=== PATIENT | female | born 1990 | race Caucasian/White ===

== ENCOUNTER 2021-02-09 20:13 | Emergency (ER) | payer MEDICAID ==
[2021-02-09] MEDS ORDERED: Sodium Chloride 0.9% 500 ML IV ONE (20:34)
[2021-02-09] MEDS ORDERED: Sodium Chloride 0.9% 10 ML Syringe FLUSH PRN (20:34)
[2021-02-09] MEDS ORDERED: Sodium Chloride 0.9% 2.5 ML Syringe FLUSH PRN (20:34)
[2021-02-09] MEDS ORDERED: LORazepam 2 MG/ML SDV IVPUSH STA (20:36)
--- NOTE | 2021-02-09 20:42 | EDM.PDOC ---
ED HPI GENERAL MEDICAL PROBLEM - General Chief Complaint: Cardiovascular Problem Stated Complaint: HIGH BLOOD PRESSURE Time Seen by Provider: 02/09/21 20:21 - History of Present Illness INITIAL COMMENTS - FREE TEXT/NARRATIVE: Patient presents to the emergency department complaining of dizziness and chest pain. Patient with a history of of to time cardiac ablation for SVT, ASD and epidural and December from head injury. She states on Tuesday she got the Covid vaccine and was sleepy since then. Then over the last day she developed sharp chest pain and lightheadedness. Patient states she had a history of anxiety but is only last use of Xanax several months ago. Patient denies history of blood clot. No unilateral leg swelling. No recent travel or cancer or surgery. Patient uses Depo for control and smokes cigarettes and had epidural in December as potential PE risk factors. Patient denies any fevers cough or productive sputum. There is no excessive vaginal bleeding or red or black stools. She is not complaining of headache slurred speech double vision arm/leg numbness/weakness. She states her lightheadedness is worse when she sits up. The chest pain is sharp and not pleuritic. It is not worse when she sits up or lays down or ambulates. Moderate - Related Data Allergies Allergy/AdvReac Type Severity Reaction Status Date / Time morphine Allergy Hives Verified 02/09/21 20:28 tramadol Allergy Hives Verified 02/09/21 20:28 Home Meds: Home Meds Sertraline [Zoloft] 50 mg PO DAILY 02/09/21 [History] Zolpidem [Ambien] 10 mg PO BEDTIME 02/09/21 [History] Past Medical History Cardiovascular History: Reports: Arrhythmia, Other (See Below) Other Cardiovascular History: Atrial Septal Defect Respiratory History: Reports: None Neurological History: Reports: Brain Injury - Past Surgical History Cardiovascular Surgical History: Reports: None Social & Family History - Tobacco Use Tobacco Use Status *Q: Current Every Day Tobacco User Years of Tobacco use: 3 Packs/Tins Daily: 0.5 - Caffeine Use Caffeine Use: Reports: None - Alcohol Use Days Per Week of Alcohol Use: 1 Number of Drinks Per Day: 1 Total Drinks Per Week: 1 - Recreational Drug Use Recreational Drug Use: No ED ROS GENERAL - Review of Systems Review Of Systems: Comprehensive ROS is negative, except as noted in HPI. ED EXAM, GENERAL - Physical Exam Exam: See Below Free Text/Narrative:: CONSTITUTIONAL: well appearing in no acute distress SKIN: Warm, dry, and intact without rash HENT: Normocephalic, atraumatic, PULMONARY: clear to ausculation bilaterally. No rales, rhonchi, wheezing CARDIOVASCULAR: Tachycardia no murmurs or rubs or gallops GASTROINTESTINAL: soft, nondistended, nontender NEUROLOGIC: normal speech, II-XII intact. light touch/5/5 power equal and symmetric in upper and lower extremities without deficit MUSCULOSKELETAL: no gross deformities, atraumatic PSYCHIATRIC: normal mood and affect #1 Interpretation Time: 20:41 EKG Interpretation Comments: 8:18 PM. 126, sinus tachycardia, nonspecific ST/T findings Course - Vital Signs Text/Narrative:: Differential diagnosis: PE, pneumothorax, pneumonia, ACS, pericarditis, dissection, intracranial hemorrhage, vaccination side effect, other Presents as outlined above. Patient's tachycardia resolved in the emergency department with IV fluids and Ativan. She was to get Toradol after CT scan showed no reason for anticoagulation and bleeding but declines at this time. She would like to go home. Otherwise EKG nonspecific with negative cardiac enzymes in this patient with very low risk for ACS. CT scan likely is negative for any acute pathology. Patient advised trial of ibuprofen at home with return precautions and PCP follow-up Last Recorded V/S: Last Vital Signs Temp 37.1 C 02/09/21 20:20 Pulse 92 02/09/21 22:54 Resp 17 02/09/21 22:54 BP 115/72 02/09/21 22:54 Pulse Ox 97 02/09/21 22:54 - Orders/Labs/Meds Orders: Active Orders 24 hr Category Date Time Status Cardiac Monitoring [RC] . DIRECTED Care 02/09/21 20:35 Active Pulse Oximetry [RC] ASDIRECTED Care 02/09/21 20:35 Active Sodium Chloride 0.9% [Saline Flush] Med 02/09/21 20:34 Active 10 ml FLUSH ASDIRECTED PRN Sodium Chloride 0.9% [Saline Flush] Med 02/09/21 20:34 Active 2.5 ml FLUSH ASDIRECTED PRN Saline Lock Insert [OM.PC] Stat Oth 02/09/21 20:35 Ordered Medication Orders Sodium Chloride (Sodium Chloride 0.9% 10 Ml Syringe) 10 ml FLUSH ASDIRECTED PRN PRN Reason: Keep Vein Open Last Admin: 02/09/21 20:45 Dose: 10 ml Documented by: FAUZIA Sodium Chloride (Sodium Chloride 0.9% 2.5 Ml Syringe) 2.5 ml FLUSH ASDIRECTED PRN PRN Reason: Keep Vein Open Last Admin: 02/09/21 20:44 Dose: 2.5 ml Documented by: FAUZIA Labs: Laboratory Tests 02/09/21 02/09/21 02/09/21 Range/Units 20:25 20:25 20:25 WBC 10.34 (4.0-11.0) K/uL RBC 5.07 (4.30-5.90) M/uL Hgb 16.6 H (12.0-16.0) g/dL Hct 46.1 H (36.0-46.0) % MCV 90.9 (80.0-98.0) fL MCH 32.7 H (27.0-32.0) pg MCHC 36.0 (31.0-37.0) g/dL RDW Std Deviation 46.5 (28.0-62.0) fl RDW Coeff of Yuni 14 (11.0-15.0) % Plt Count 382 (150-400) K/uL MPV 9.70 (7.40-12.00) fL Neut % (Auto) 64.1 (48.0-80.0) % Lymph % (Auto) 26.9 (16.0-40.0) % [place] % (Auto) 7.4 (0.0-15.0) % Eos % (Auto) 1.3 (0.0-7.0) % Baso % (Auto) 0.3 (0.0-1.5) % Neut # (Auto) 6.6 H (1.4-5.7) K/uL Lymph # (Auto) 2.8 H (0.6-2.4) K/uL [place] # (Auto) 0.8 (0.0-0.8) K/uL Eos # (Auto) 0.1 (0.0-0.7) K/uL Baso # (Auto) 0.0 (0.0-0.1) K/uL Nucleated RBC % 0.0 /100WBC Nucleated RBCs # 0 K/uL INR 1.00 Sodium 140 (136-145) mmol/L Potassium 3.5 (3.5-5.1) mmol/L Chloride 101 (98-107) mmol/L Carbon Dioxide 23.0 (21.0-32.0) mmol/L BUN 10 (7.0-18.0) mg/dL Creatinine 0.8 (0.6-1.0) mg/dL Est Cr Clr Drug Dosing 99.99 mL/min Estimated GFR (MDRD) > 60.0 ml/min Glucose 94 (74-106) mg/dL Calcium 9.4 (8.5-10.1) mg/dL Total Bilirubin 0.6 (0.2-1.0) mg/dL AST 19 (15-37) IU/L ALT 25 (14-63) IU/L Alkaline Phosphatase 56 (46-116) U/L Troponin I < 0.050 (0.000-0.056) ng/mL Total Protein 8.2 (6.4-8.2) g/dL Albumin 4.4 (3.4-5.0) g/dL Globulin 3.8 (2.6-4.0) g/dL Albumin/Globulin Ratio 1.2 (0.9-1.6) TSH, Ultra Sensitive 1.08 (0.36-3.74) uIU/mL Urine Color Urine Appearance Urine pH (5.0-8.0) Ur Specific [place] (1.001-1.035) Urine Protein (NEGATIVE) mg/dL Urine Glucose (UA) (NEGATIVE) mg/dL Urine Ketones (NEGATIVE) mg/dL Urine Occult Blood (NEGATIVE) Urine Nitrite (NEGATIVE) Urine Bilirubin (NEGATIVE) Urine Urobilinogen (<2.0) EU/dL Ur Leukocyte Esterase (NEGATIVE) Urine RBC (0-2/HPF) Urine WBC (0-5/HPF) Ur Epithelial Cells (NONE-FEW) Urine Bacteria (NEGATIVE) Urine HCG, Qual (NEGATIVE) 02/09/21 02/09/21 Range/Units 21:55 21:55 WBC (4.0-11.0) K/uL RBC (4.30-5.90) M/uL Hgb (12.0-16.0) g/dL Hct (36.0-46.0) % MCV (80.0-98.0) fL MCH (27.0-32.0) pg MCHC (31.0-37.0) g/dL RDW Std Deviation (28.0-62.0) fl RDW Coeff of Yuni (11.0-15.0) % Plt Count (150-400) K/uL MPV (7.40-12.00) fL Neut % (Auto) (48.0-80.0) % Lymph % (Auto) (16.0-40.0) % [place] % (Auto) (0.0-15.0) % Eos % (Auto) (0.0-7.0) % Baso % (Auto) (0.0-1.5) % Neut # (Auto) (1.4-5.7) K/uL Lymph # (Auto) (0.6-2.4) K/uL [place] # (Auto) (0.0-0.8) K/uL Eos # (Auto) (0.0-0.7) K/uL Baso # (Auto) (0.0-0.1) K/uL Nucleated RBC % /100WBC Nucleated RBCs # K/uL INR Sodium (136-145) mmol/L Potassium (3.5-5.1) mmol/L Chloride (98-107) mmol/L Carbon Dioxide (21.0-32.0) mmol/L BUN (7.0-18.0) mg/dL Creatinine (0.6-1.0) mg/dL Est Cr Clr Drug Dosing mL/min Estimated GFR (MDRD) ml/min Glucose (74-106) mg/dL Calcium (8.5-10.1) mg/dL Total Bilirubin (0.2-1.0) mg/dL AST (15-37) IU/L ALT (14-63) IU/L Alkaline Phosphatase (46-116) U/L Troponin I (0.000-0.056) ng/mL Total Protein (6.4-8.2) g/dL Albumin (3.4-5.0) g/dL Globulin (2.6-4.0) g/dL Albumin/Globulin Ratio (0.9-1.6) TSH, Ultra Sensitive (0.36-3.74) uIU/mL Urine Color YELLOW Urine Appearance CLEAR Urine pH 5.5 (5.0-8.0) Ur Specific [place] 1.015 (1.001-1.035) Urine Protein NEGATIVE (NEGATIVE) mg/dL Urine Glucose (UA) NEGATIVE (NEGATIVE) mg/dL Urine Ketones 15 H (NEGATIVE) mg/dL Urine Occult Blood SMALL H (NEGATIVE) Urine Nitrite NEGATIVE (NEGATIVE) Urine Bilirubin NEGATIVE (NEGATIVE) Urine Urobilinogen 0.2 (<2.0) EU/dL Ur Leukocyte Esterase NEGATIVE (NEGATIVE) Urine RBC 1-3 (0-2/HPF) Urine WBC 0-2 (0-5/HPF) Ur Epithelial Cells RARE (NONE-FEW) Urine Bacteria RARE (NEGATIVE) Urine HCG, Qual NEGATIVE (NEGATIVE) Meds: Medications Generic Name Dose Route Start Last Admin Trade Name Jazmin PRN Reason Stop Dose Admin Sodium Chloride 10 ml 02/09/21 20:34 02/09/21 20:45 Sodium Chloride 0.9% 10 Ml Syringe FLUSH 10 ml ASDIRECTED PRN Administration Keep Vein Open Sodium Chloride 2.5 ml 02/09/21 20:34 02/09/21 20:44 Sodium Chloride 0.9% 2.5 Ml Syringe FLUSH 2.5 ml ASDIRECTED PRN Administration Keep Vein Open Discontinued Medications Generic Name Dose Route Start Last Admin Trade Name Jazmin PRN Reason Stop Dose Admin Sodium Chloride 500 mls @ 999 mls/hr 02/09/21 20:34 02/09/21 20:44 Normal Saline IV 02/09/21 21:04 999 mls/hr .BOLUS ONE Administration Iopamidol 75 ml 02/09/21 22:25 02/09/21 22:31 Iopamidol 755 Mg/Ml 500 Ml Multipack Bottle IVPUSH 02/09/21 22:26 75 ml ONETIME ONE Administration Lorazepam 1 mg 02/09/21 20:36 02/09/21 20:44 Lorazepam 2 Mg/Ml Sdv IVPUSH 02/09/21 20:37 1 mg NOW STA Administration Departure - Departure Time of Disposition: 23:17 Disposition: Home, Self-Care 01 Condition: Good Clinical Impression: Chest pain Instructions: Nonspecific Chest Pain, Adult, [id number] Forms: ED Department Discharge Additional Instructions: Ibuprofen [id number] for pain. Return for any increased pain, shortness of breath, lightheadedness that is worsened, any change or worsening condition. Follow-up with primary care doctor this week for reevaluation. The following information is given to patients seen in the emergency department who are being discharged to home. This information is to outline your options for follow-up care. We provide all patients seen in our emergency department with a follow-up referral. The need for follow-up, as well as the timing and circumstances, are variable depending upon the specifics of your emergency department visit. If you don't have a primary care physician on staff, we will provide you with a referral. We always advise you to contact your personal physician following an emergency department visit to inform them of the circumstance of the visit and for follow-up with them and/or the need for any referrals to a consulting specialist. The emergency department will also refer you to a specialist when appropriate. This referral assures that you have the opportunity for follow-up care with a specialist. All of these measure are taken in an effort to provide you with optimal care, which includes your follow-up. Primary care clinics in the area: [facility] [address] [place] [address] [id number] Under all circumstances we always encourage you to contact your private physician who remains a resource for coordinating your care. When calling for follow-up care, please make the office aware that this follow-up is from your recent emergency room visit. If for any reason you are refused follow-up, please contact the [facility] Emergency Department at and asked to speak to the emergency department charge nurse. Sepsis Event Note (ED) - Evaluation Sepsis Screening Result: No Definite Risk - Focused Exam Vital Signs: Vital Signs Temp Pulse Resp BP Pulse Ox 02/09/21 22:54 92 17 115/72 97 02/09/21 20:20 37.1 C 125 H 18 151/100 H 97 - My Orders Last 24 Hours: My Active Orders 02/09/21 20:34 Sodium Chloride 0.9% [Saline Flush] 10 ml FLUSH ASDIRECTED PRN Sodium Chloride 0.9% [Saline Flush] 2.5 ml FLUSH ASDIRECTED PRN 02/09/21 20:35 Cardiac Monitoring [RC] . DIRECTED Pulse Oximetry [RC] ASDIRECTED Saline Lock Insert [OM.PC] Stat - Assessment/Plan Last 24 Hours: My Active Orders 02/09/21 20:34 Sodium Chloride 0.9% [Saline Flush] 10 ml FLUSH ASDIRECTED PRN Sodium Chloride 0.9% [Saline Flush] 2.5 ml FLUSH ASDIRECTED PRN 02/09/21 20:35 Cardiac Monitoring [RC] . DIRECTED Pulse Oximetry [RC] ASDIRECTED Saline Lock Insert [OM.PC] Stat
[2021-02-09 21:00] LABS: BLOOD UREA NITROGEN,BUN 10 mg/dL (7.0-18.0); CHLORIDE,CL 101 mmol/L (98-107); GLUCOSE RANDOM 94 mg/dL (74-106); POTASSIUM,K 3.5 mmol/L (3.5-5.1); SODIUM,NA 140 mmol/L (136-145)
[2021-02-09] MEDS ORDERED: Iopamidol 755 MG/ML 500 ML Multipack Bottle IVPUSH ONE (22:25)
--- NOTE | 2021-02-09 22:59 | CT ---
INDICATION: Hypertension, epidural follow-up TECHNIQUE: CT head without contrast. COMPARISON: Head CT 01/18/2021 FINDINGS: CSF spaces: Within normal limits for age. Brain parenchyma: The antonio-white differentiation is normal. No sign of mass, hemorrhage, or midline shift. Skull base and calvarium: The visualized paranasal sinuses and mastoid air cells demonstrate no acute or significant findings. The visualized orbits are grossly unremarkable. No skull fractures. IMPRESSION: Unremarkable noncontrast head CT. Please note that all CT scans at this facility use dose modulation, iterative reconstruction, and/or weight-based dosing when appropriate to reduce radiation dose to as low as reasonably achievable. Dictated by Kip Harp MD @ 02/09/2021 10:57:50 PM (Electronically Signed)
--- NOTE | 2021-02-09 23:07 | CT ---
INDICATION: Chest pain TECHNIQUE: CT chest PE was acquired with 75 cc Isovue 370 intravenous contrast. COMPARISON: None. FINDINGS: Heart and vasculature: Contrast opacification of the pulmonary arterial tree is adequate. No sign of pulmonary embolism. Heart size is normal. Thoracic aorta and pulmonary artery are normal in caliber. Lungs and pleural: No suspicious nodules or infiltrates. No pleural effusions, pleural thickening, or pneumothorax. Lymph nodes/mediastinum: No mediastinal, hilar, or axillary adenopathy. Chest wall: Subcentimeter axillary lymph nodes. Upper abdomen: Status post cholecystectomy. Bones: Unremarkable for age. IMPRESSION: Unremarkable chest CTA. No evidence of pulmonary embolus. Please note that all CT scans at this facility use dose modulation, iterative reconstruction, and/or weight-based dosing when appropriate to reduce radiation dose to as low as reasonably achievable. Dictated by Kip Harp MD @ 02/09/2021 11:06:13 PM (Electronically Signed)
== END 2021-02-09 23:29 | disposition home or self-care (01) ==
LOC: MW.ED 20:13
DX: R07.9 Chest pain, unspecified (principal); R00.0 Tachycardia, unspecified; Z72.0 Tobacco use; Z88.5 Allergy status to narcotic agent
CPT/HCPCS: 36415; 70450; 71275; 80053; 81001; 81025; 84443; 84484; 85025; 85610; 93005; 96374; 99285; J2060; J7030; Q9967

== ENCOUNTER 2021-03-14 17:58 | Emergency (ER) | payer MEDICAID ==
[2021-03-14] MEDS ORDERED: Dexamethasone 10 MG/ML SDV ONE (18:01)
[2021-03-14] MEDS ORDERED: Famotidine 20 MG/2 ML SDV ONE (18:02)
[2021-03-14] MEDS ORDERED: Famotidine 20 MG/2 ML SDV IVPUSH ONE (18:05)
[2021-03-14] MEDS ORDERED: Dexamethasone 10 MG/ML SDV IVPUSH ONE (18:05)
--- NOTE | 2021-03-14 18:06 | EDM.PDOC ---
<Socrates Lopez - Last Filed: 03/14/21 18:03> ED HPI GENERAL MEDICAL PROBLEM - General Stated Complaint: EMS ARRIVAL ALLERGIC REACTION Time Seen by Provider: 03/14/21 18:50 - History of Present Illness INITIAL COMMENTS - FREE TEXT/NARRATIVE: History of present illness: [] About 5:15 PM the patient drank a Gatorade. Subsequently she realized it had something she is allergic to. 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 She thinks the ingredients include strawberries. She was wheezing have trouble breathing tried to drive to [place] about 15 miles weight in the hospital she stopped and called 911 and they gave her adrenaline 0.3 mg on site and 0.2 in route despite the fact that she improved somewhat transiently with epinephrine and an albuterol treatment. She also received 50 mg of IV diphenhydramine en route the patient then began to wheeze again. She never lost her voice this time and when she had the Clint airway before she had trouble speaking. She did have such shortness of breath that she can only speak 3 words at a time when EMS first found her. She is markedly improved now. Review of systems: As per history of present illness and below otherwise all systems reviewed and negative. Past medical history: As per history of present illness and as reviewed below otherwise noncontributory. Surgical history: As per history of present illness and as reviewed below otherwise noncontributory. Social history: No reported history of drug or alcohol abuse. Family history: As per history of present illness and as reviewed below otherwise noncontributory. Physical exam: Constitutional - well developed, well-nourished and in no acute distress HEENT - normocephalic, no evidence of trauma - external nose and mouth normal - no mass in neck and no JVD - mucosae moist EYES - full EOM, PERRL, no icterus - no evidence of inflammation, injection, or drainage Respiratory - no respiratory distress, equal bilateral expansion, lungs scattered light wheezes. Cardiovascular - Regular Rhythm with S1 and S2 appreciated and no murmur, gallop or rub. GI - abdomen soft without distension or organomegaly - normal bowel sounds - no guard or rebound Musculoskeletal no gross deformity of long bones or joints - no tenderness, swelling or edema Neurologic - Alert and oriented times four - CN II-XII grossly intact - motor sensory and coordination symmetrically normal Psychiatric - appropriate mood and affect with normal thought content Hematologic - No petechiae or purpura - mucosa appropriate color and sclera not pale - normal nail bed color and refill Integument - no rash or evidence of trauma - normal turgor Diagnostics: [] Therapeutics: [] Impression: [] Plan: [] Definitive disposition and diagnosis as appropriate pending reevaluation and review of above. - Related Data Allergies Allergy/AdvReac Type Severity Reaction Status Date / Time morphine Allergy Hives Verified 02/09/21 20:28 tramadol Allergy Hives Verified 02/09/21 20:28 Home Meds: Home Meds Sertraline [Zoloft] 50 mg PO DAILY 02/09/21 [History] Zolpidem [Ambien] 10 mg PO BEDTIME 02/09/21 [History] EPINEPHrine [Epipen] 0.3 mg IM ONETIME PRN 1 Days #1 ml 03/14/21 [Rx] Past Medical History Cardiovascular History: Reports: Arrhythmia, Other (See Below) Other Cardiovascular History: Atrial Septal Defect Respiratory History: Reports: None Neurological History: Reports: Brain Injury - Past Surgical History Cardiovascular Surgical History: Reports: None Social & Family History - Caffeine Use Caffeine Use: Reports: None ED ROS PEDIATRIC - Review of Systems Review Of Systems: Comprehensive ROS is negative, except as noted in HPI. ED EXAM, GENERAL (PEDS) - Physical Exam Exam: See Below Text/Narrative:: My physical exam is in the HPI Departure - Departure Disposition: Home, Self-Care 01 Clinical Impression: Anaphylaxis - Discharge Information Prescriptions: EPINEPHrine [Epipen] 0.3 mg IM ONETIME PRN 1 Days #1 ml PRN Reason: anaphylaxis Instructions: Anaphylactic Reaction, Adult Additional Instructions: Please be sure to fill the EpiPen prescription on your way home and please be sure to have it with you at all times. You were at risk for a rebound anaphylactic reaction for the next 3 days so it is very important that you have the EpiPen with you that entire time. <Leonel Self - Last Filed: 03/14/21 19:55> ED ROS PEDIATRIC - Review of Systems Review Of Systems: See Below ED EXAM, GENERAL (PEDS) - Physical Exam Exam: See Below Course - Vital Signs Last Recorded V/S: Last Vital Signs Temp 97 F 03/14/21 17:59 Pulse 85 03/14/21 18:26 Resp 16 03/14/21 18:26 BP 105/60 03/14/21 18:26 Pulse Ox 98 03/14/21 18:26 - Orders/Labs/Meds Meds: Medications Discontinued Medications Generic Name Dose Route Start Last Admin Trade Name Jazmin PRN Reason Stop Dose Admin Dexamethasone Confirm 03/14/21 18:01 03/14/21 18:10 Dexamethasone 10 Mg/Ml Sdv Administered 03/14/21 18:02 Not Given Dose 10 mg .ROUTE .STK-MED ONE Dexamethasone 10 mg 03/14/21 18:05 03/14/21 18:11 Dexamethasone 10 Mg/Ml Sdv IVPUSH 03/14/21 18:06 10 mg ONETIME ONE Administration Famotidine Confirm 03/14/21 18:02 03/14/21 18:10 Famotidine 20 Mg/2 Ml Sdv Administered 03/14/21 18:03 Not Given Dose 20 mg .ROUTE .STK-MED ONE Famotidine 20 mg 03/14/21 18:05 03/14/21 18:11 Famotidine 20 Mg/2 Ml Sdv IVPUSH 03/14/21 18:06 20 mg ONETIME ONE Administration Ondansetron HCl 4 mg 03/14/21 18:18 03/14/21 18:22 Ondansetron 4 Mg/2 Ml Sdv IVPUSH 03/14/21 18:19 4 mg ONETIME ONE Administration Departure - Departure Time of Disposition: 19:53 Condition: Good - Discharge Information *PRESCRIPTION DRUG MONITORING PROGRAM REVIEWED*: Not Applicable *COPY OF PRESCRIPTION DRUG MONITORING REPORT IN PATIENT REMBERTO: Not Applicable Sepsis Event Note (ED) - Focused Exam Vital Signs: Vital Signs Temp Pulse Resp BP Pulse Ox 03/14/21 18:26 85 16 105/60 98 03/14/21 18:11 83 139/83 99 03/14/21 17:59 97 F 89 20 139/83 97 - Assessment/Plan Assessment:: Patient received in signout from Dr. Lopez at 7 PM. On my reassessment at 8 PM the patient has a normal exam no stridor no wheezing normal work of breathing and she is anxious for discharge. She has an EpiPen at work she is also been provided with a prescription for a second epinephrine pen that she will fill on her way home. The risk for rebound reactions was discussed and understood.
[2021-03-14] MEDS ORDERED: Ondansetron 4 MG/2 ML SDV IVPUSH ONE (18:18)
== END 2021-03-14 20:10 | disposition home or self-care (01) ==
LOC: MW.ED 17:58
DX: T78.2XXA Anaphylactic shock, unspecified, initial encounter (principal); Z88.5 Allergy status to narcotic agent
CPT/HCPCS: 96374; 96375; 99284; J1100; J2405; J3490